=== PATIENT | male | born 1985 | race Hispanic/Latino ===

== ENCOUNTER 2024-06-08 19:32 | Emergency (ER) | payer SELFPAY ==
--- NOTE | ~2024-06-08 | CT_ITS ---
CLINICAL INDICATION: Left groin pain COMPARISON: Reference is made with a scrotal ultrasound performed 20 minutes earlier demonstrating le ft-sided epididymoorchitis. TECHNIQUE: Multiple contiguous axial images of the abdomen and pelvis were performed following the ad ministration of with 100 mL Omnipaque-350 intravenous contrast The dose-length product (DLP) was 1123.26 mGy-cm. Automated exposure control and iterative reconstruction technique were employed. FINDINGS/OBSERVATIONS: Visualized lower thorax: The bilateral lung bases are clear. The heart is of normal size, without pericardial effusion. Small hiatal hernia is present. Liver: The liver demonstrates homogeneous enhancement and is enlarged measuring 21 cm in longitudinal dimens ion. Gallbladder and biliary system: The gallbladder demonstrates multiple dependent stones, and is otherwise unremarkable. Pancreas: The pancreas enhances homogeneously without ductal dilatation. Spleen: The spleen enhances homogeneously and is enlarged measuring 13 cm in longitudinal dimension. Kidneys: The bilateral kidneys enhance symmetrically without hydronephrosis or renal calculi. Adrenal glands: Unremarkable. Gastrointestinal tract: Colonic diverticulosis without surrounding inflammatory change. Appendix: The air-filled appendix is of normal caliber (axial series, images 137 through 155). Vasculature: Unremarkable. Lymph nodes: No pathologically enlarged or morphologically suspicious lymph nodes within the retroperitoneum or at the root of the mesentery. Pelvic structures: The bladder is decompressed, and otherwise unremarkable. The prostate gland is not enlarged. Body wall and musculoskeletal: Small fat-containing umbilical hernia. No fascial defect is identified within the bilateral inguinal regions to suggest a left inguinal lebron ia. Within the soft tissues along the undersurface of the left lateral abdominal wall is infiltration of the mesentery, a nonspecific finding. Multiple nonpathologically enlarged or morphologically suspicious lymph nodes within the bilateral in guinal regions, also a nonspecific finding. No significant degenerative disease within the lower thoracic or lumbosacral spine. IMPRESSION: No left inguinal hernia on cross sectional imaging in the supine position. Cholelithiasis without surrounding inflammation. Fat-containing umbilical hernia. Infiltration of the mesentery along the undersurface of the left lateral abdominal bowel, a nonspecif ic finding. Hepatosplenomegaly Reviewed, dictated and finalized at location A. ENFORCEMENT OFFICER IMPRESSION: No left inguinal hernia on cross sectional imaging in the supine position. Cholelithiasis without surrounding inflammation. Fat-containing umbilical hernia. Infiltration of the mesentery along the undersurface of the left lateral abdomi nal bowel, a nonspecific finding. Hepatosplenomegaly
--- NOTE | ~2024-06-08 | US_ITS ---
EXAMINATION: US scrotum doppler DATE: 06/08/2024 21:43 INDICATION: Testicular pain TECHNIQUE: Sonographic evaluation of the scrotum was performed assessing grayscale appearance and col or Doppler flow. Spectral Doppler evaluation was also performed. COMPARISON: None. FINDINGS: RIGHT TESTICLE: The right testicle measures 5.1 x 2.5 x 3.4 cm. Arterial and venous flow are present. RIGHT EPIDIDYMIS: The right epididymis measures 9.4 mm. Within the right epididymis is a well circumscribed anechoic avascular structure measuring 4.7 x 4.8 x 3.5 mm, consistent with a simple cyst for which no further follow-up is needed. Vasculature was not significantly prominent. Pre-Valsalva measurement less than 3 mm. LEFT TESTICLE: The left testicle measures 5.2 x 2.5 x 3.9 cm. Arterial and venous flow are demonstrated. Increased vascularity detected in bilateral testicular view LEFT EPIDIDYMIS: The left epididymis measures 9.2 mm. Within the left epididymis is an anechoic avascular well-circums cribed focus measuring 3.5 x 3.2 mm, consistent with a simple cyst for which no further follow-up is needed. The left epididymis demonstrates increased vascularity, findings suggesting epididymitis. Pre-Valsalva measurement less than 3 mm. IMPRESSION: Bilateral epididymal head cysts, as detailed above. Increased vascularity within the left testicle as well as the left epididymis, findings suggesting ep ididymoorchitis for which clinical correlation is needed. Reviewed, dictated and finalized at location A. EGEE TENDER IMPRESSION: Bilateral epididymal head cysts, as detailed above. Increased vascularity within the left testicle as well as the left epididymis, findings suggesting epididymoorchitis for which clinical correlation is needed.
[2024-06-08 19:42] VITALS: BP 199/115; PULSE 68; RESP 20; TEMP 36.3; O2SAT 100
[2024-06-08 20:15] LABS: Add Urine Microscopic? YES; Appearance Urine Clear (Clear); Bacteria Urine None Seen /hpf; Bilirubin Urine Negative (Negative); Blood Urine Negative (Negative); Color Urine Yellow (Yellow); Glucose Urine UA Negative (Negative); Ketones Urine Trace mg/dL (Negative); Leukocyte Esterase Ur Negative LEU/UL (Negative); Nitrate Urine Negative (Negative); Non Pathogenic Casts 0-2; Protein Urine 2+ mg/dL (Negative); RBC Urine 0-2 /hpf (0-2); Specific Grav Ur 1.021 (1.001-1.035); Squamous Epithelial Cell Urine None Seen /hpf (Few); WBC Urine 0-5 /hpf (0-3); pH Urine 5.5 (5.0-9.0)
[2024-06-08 20:54] LABS: Basophils Absolute Auto 0.1 K/mm3 (0.0-0.1); Basophils Percent Auto 0.7 % (0.2-1.2); Eosinophils Absolute Auto 0.2 K/mm3 (0-0.3); Eosinophils Percent Auto 2.6 % (0-4.4); Hemoglobin 15.5 g/dL (14.0-18.0); Immature Granulocyte Absolute 0.02 K/mm3 (0.00-0.031); Immature Granulocyte Percent A 0.2 % (0-0.5); Lymphocytes Absolute Auto 2.27 K/mm3 (0.9-3.2); Lymphocytes Percent Auto 25.9 % (18.3-44.2); Mean Corpuscular Volume 81.9 fl (80-100); Mean Platelet Volume 10.4 fl (7.4-10.4); Monocytes Absolute Auto 0.7 K/mm3 (0.1-0.6); Monocytes Percent Auto 7.9 % (2.6-8.5); Neutrophils Absolute Auto 5.5 K/mm3 (1.3-6.7); Neutrophils Percent Auto 62.7 % (45.5-73.1); Platelet Count Result 287 k/mm3 (150-375); Red Blood Count 5.74 M/mm3 (4.6-6.20); Red Cell Distribution Width 13.9 % (11.5-14.5); White Blood Count 8.8 K/mm3 (4.5-10.0)
--- NOTE | 2024-06-08 21:12 | ED_ITS ---
HPI - Male Genitourinary General Chief complaint: Urogenital-Male Stated complaint: groin pain Time Seen by Provider: 06/08/24 20:37 History of Present Illness HPI Narrative: 39 y/o Moroccan-speaking M with a PMHx of hypertension and prediabetes presents to the emergency department with concerns for a left inguinal hernia. Patient states her approximately 20 days he has had a bulge to the left inguinal region with some tenderness to this region. States the bulge occurs when he is up moving around and better when he is lying flat. He does state he is able to reduce this bulge and has been able to reduce it today. He states over the past day that the pain has significantly worsened which prompted him to come to the ER. He states his last bowel movement was 2-3 hours prior to arrival but does feel like he is constipated and straining more than normal. He denies obstipation, prior abdominal surgeries. He is reporting some dysuria but no hematuria. States he is having pain in the left testicle. He denies penile discharge or concern for STDs. Denies fevers, nausea vomiting. Related Data Allergies Allergy/AdvReac Type Severity Reaction Status Date / Time No Known Allergies Allergy Verified 06/08/24 20:28 Review of Systems 2 Review of Systems: All systems reviewed & are unremarkable except as noted in HPI and below Exam 2 Narrative: GENERAL: Well-appearing, well-nourished, and in no acute distress. HEAD: Normocephalic, atraumatic. EYES: EOMI. ENT: Nares clear, no rhinorrhea or epistaxis. Mucous membranes moist. NECK: Supple. CHEST: Clear to auscultation. No respiratory distress. HEART: Regular rate and rhythm. No murmur heard. Normal peripheral pulses. ABDOMEN: Soft, nontender, nondistended, normal active bowel sounds. No rebound, guarding rigidity. : Chaperoned by Govind Berg: Tenderness palpation of the left testicle with no obvious deformity or palpable mass, no significant scrotal enlargement or skin changes. No palpable indirect or direct inguinal hernia while lying flat on the exam table EXTREMITIES: Normal range of motion. No edema. SKIN: Warm, dry, no rash. NEURO: No focal deficits. Alert and oriented x3 Course Vital Signs Vital signs: Vital Signs Temperature 97.3 F L 06/08/24 19:42 Pulse Rate 68 06/08/24 19:42 Respiratory Rate 20 06/08/24 19:42 Blood Pressure 199/115 H 06/08/24 19:42 Pulse Oximetry 100 06/08/24 19:42 Oxygen Delivery Room Air 06/08/24 19:42 Temperature 97.3 F L 06/08/24 19:42 Pulse Rate 68 06/08/24 19:42 Respiratory Rate 20 06/08/24 19:42 Blood Pressure 199/115 H 06/08/24 19:42 Pulse Oximetry 100 06/08/24 19:42 Oxygen Delivery Room Air 06/08/24 19:42 MDM - Male Genitourinary MDM Narrative Medical decision making narrative: 39-year-old male with history of hypertension and prediabetes presents to the emergency department with pain and bulging to the left inguinal region and pain to the left testicle for the past 20 days, worsening over the past day. See HPI for further history. Vitals with hypertension, otherwise unremarkable. Exam is significant for the above. Lab work shows no leukocytosis or anemia. Chemistries are largely unremarkable. UA with trace ketones and 2+ protein, no UTI or hematuria. Chlamydia gonorrhea are negative. Lipase within normal limits. CT abdomen pelvis shows no left inguinal hernia on cross-sectional imaging in the supine position, there is cholelithiasis without surrounding inflammation, fat containing umbilical hernia and hepatosplenomegaly. Scrotal Doppler shows bilateral epididymal head cyst and increased vascularity within the left testicle as well as left epididymis suggesting epididymo-orchitis which is consistent with patient's presentation. Patient was updated on results. He received Toradol with improvement. He is not sexually active. Will start treatment for epididymo-orchitis with Bactrim and provide Urology and PCP follow-up. Discuss scrotal elevation, ibuprofen p.r.n. for pain and return precautions. He is agreeable with the plan verbalized understanding. Discharged in stable condition. Lab Data 06/08/24 20:49 06/08/24 20:49 Labs: Lab Results 06/08/24 06/08/24 Range/Units 20:00 20:49 WBC 8.8 (4.5-10.0) K/mm3 RBC 5.74 (4.6-6.20) M/mm3 Hgb 15.5 (14.0-18.0) g/dL Hct 47.0 (42.0-52.0) % MCV 81.9 (80-100) fl MCH 27.0 (26-34) pg MCHC 33.0 (32-36) g/dl RDW 13.9 (11.5-14.5) % Plt Count 287 (150-375) k/mm3 MPV 10.4 (7.4-10.4) fl Immature Gran % (Auto) 0.2 (0-0.5) % Neut % (Auto) 62.7 (45.5-73.1) % Lymph % (Auto) 25.9 (18.3-44.2) % [place] % (Auto) 7.9 (2.6-8.5) % Eos % (Auto) 2.6 (0-4.4) % Baso % (Auto) 0.7 (0.2-1.2) % Lymph # (Auto) 2.27 (0.9-3.2) K/mm3 [place] # (Auto) 0.7 H (0.1-0.6) K/mm3 Eos # (Auto) 0.2 (0-0.3) K/mm3 Baso # (Auto) 0.1 (0.0-0.1) K/mm3 Abs Immat Gran (auto) 0.02 (0.00-0.031) K/mm3 Absolute Neuts (auto) 5.5 (1.3-6.7) K/mm3 Absolute Nucleated RBC 0.000 (0.0-0.012) K/mm3 Nucleated RBC % 0.0 (0.0-0.2) % Sodium 140 (137-145) mmol/L Potassium 4.0 (3.4-5.0) mmol/L Chloride 102 (98-107) mmol/L Carbon Dioxide 25 (22-30) mmol/L Anion Gap 13 H (4-12) mmol/L BUN 18 (9-20) mg/dL Creatinine 0.69 L (0.7-1.3) mg/dL Estim Creat Clear Calc Not Reportable Estimated GFR > 60 (59 - ) Glucose 194 H (65-110) mg/dL Calcium 9.7 (8.4-10.2) mg/dL Total Bilirubin 0.6 (0.2-1.3) mg/dL AST 37 (17-59) U/L ALT 37 (6-50) U/L Alkaline Phosphatase 117 (38-126) U/L Total Protein 8.0 (6.3-8.2) g/dL Albumin 4.8 (3.5-5.1) g/dL Lipase 136 (23-300) U/L Urine Color Yellow (Yellow) Urine Appearance Clear (Clear) Urine pH 5.5 (5.0-9.0) Ur Specific Mccune 1.021 (1.001-1.035) Urine Protein 2+ H (Negative) mg/dL Urine Glucose (UA) Negative (Negative) mg/dL Urine Ketones Trace H (Negative) mg/dL Ur Blood (Man) Negative (Negative) Urine Nitrate Negative (Negative) Urine Bilirubin Negative (Negative) Urine Urobilinogen 1.0 (<2.0) mg/dL Leukocyte Esterase Rfl Negative (Negative) SERENITY/UL Urine RBC 0-2 (0-2) /hpf Urine WBC 0-5 (0-3) /hpf Ur Squamous Epith Cells None seen (Few) /hpf Urine Bacteria None seen /hpf Urine Casts 0-2 C. trachomatis (PCR) Not detected (NOT DETECTE) N. gonorrhoeae (PCR) Not detected (NOT DETECTE) Discharge Plan Discharge Clinical Impression: Acute epididymo-orchitis, Hepatosplenomegaly, Cyst of epididymis Cholelithiasis Qualifiers: Cholelithiasis location: gallbladder Cholecystitis presence: without cholecystitis Biliary obstruction: without biliary obstruction Qualified Code(s): K80.20 - Calculus of gallbladder without cholecystitis without obstruction Patient Disposition: Home, Self-Care Condition: Stable Instructions: Antibiotic Form, Epididymo-Orchitis (ED) Patient Language: Moroccan Prescriptions: New sulfamethoxazole-trimethoprim 800-160 mg tablet 1 tablet PO Q12H 10 Days Qty: 20 0RF ibuprofen 800 mg tablet 800 mg PO TID PRN (Reason: pain) Qty: 20 0RF Follow-up/Referrals: Roberto Carlos Adhikari MD [Physician] - Sidney Lo MD [Physician] - UNKNOWN,DOCTOR [Primary Care Provider] -
[2024-06-08 21:19] LABS: Alanine Aminotransferase 37 U/L (6-50); Albumin Level 4.8 g/dL (3.5-5.1); Alkaline Phosphatase 117 U/L (38-126); Anion Gap 13 mmol/L (4-12); Aspartate Amino Transferase 37 U/L (17-59); Bilirubin,Total 0.6 mg/dL (0.2-1.3); Blood Urea Nitrogen 18 mg/dL (9-20); Calcium 9.7 mg/dL (8.4-10.2); Carbon Dioxide 25 mmol/L (22-30); Chloride 102 mmol/L (98-107); Estimated Glomerular Filt Rate > 60; Glucose 194 mg/dL (65-110); Lipase 136 U/L (23-300); Sodium 140 mmol/L (137-145)
[2024-06-08 21:35] LABS: Chlamydia trachomatis NOT DETECTED (NOT DETECTE); Neisseria gonorrhoeae PCR NOT DETECTED (NOT DETECTE)
[2024-06-08] MEDS: KETOROLAC 15 MG/ML VIAL (*BKC) IV PUSH (22:13)
[2024-06-08 22:30] VITALS: BP 175/96; PULSE 78; RESP 18; TEMP 36.7; O2SAT 96
[2024-06-08] MEDS: SULFAMETHOXAZOLE/TRIMETHOPRIM 800/160 MG DS TABLET 1 TAB PO (23:06)
== END 2024-06-08 23:12 | disposition home or self-care (01) ==
PROVIDERS: Emergency Medicine; Emergency Provider Physician Assistant
DX: N45.3 Epididymo-orchitis (principal); R16.2 Hepatomegaly with splenomegaly, not elsewhere classified; N50.3 Cyst of epididymis; K80.20 Calculus of gallbladder without cholecystitis without obstruction
CPT/HCPCS: 36415; 74177; 76870; 80053; 81001; 83690; 85025; 87491; 87591; 93976; 96374; 99284; A9270; J1885; Q9967